=== PATIENT | female | born 1950 | race Caucasian/White ===

== ENCOUNTER 2019-12-28 01:53 | Outpatient (CLI) | payer OTHER, SELFPAY ==
--- NOTE | 2019-12-28 | DI.MAMMO_ITS ---
EXAM: MG MAMMO SCREENING CLINICAL HISTORY: SCREENING, TECHNIQUE: Bilateral full field digital CC and MLO mammographic images were obtained with 3D tomosyn thesis and utilizing computer aided detection (CAD). COMPARISON: Available for comparison. FINDINGS: Masses/Architectural Distortion: None seen. Microcalcifications: No suspicious pleomorphic-type are seen. Skin Thickening/Nipple Retraction: None. IMPRESSION: 1. No significant interval change with no specific features of malignancy noted. 2. Unless there is more urgent need, screening mammography is recommended, as per [employer] guidelines. BI-RADS Category 1 - Negative Breast Density - Category B - Scattered areas of fibroglandular density A negative radiographic report should not delay biopsy if a dominant or clinically suspicious mass is present. Up to ten percent of cancers are not identified on mammography. A negative report may reinforce clinical impression. Adenosis and dense breasts may obscure an underlying neoplasm. False positive reports average 6 to 10%. Patient will receive a letter notifying them of these results.
== END 2019-12-28 02:13 ==
PROVIDERS: PCP Internal Medicine; Visit Provider Internal Medicine
DX: Z12.31 Encounter for screening mammogram for malignant neoplasm of breast (principal); R92.2 Inconclusive mammogram
CPT/HCPCS: 77063; 77067

== ENCOUNTER 2020-11-08 09:35 | Outpatient (REF) | payer OTHER, SELFPAY ==
--- NOTE | 2020-11-08 08:45 | PAPFT_PTH ---
PATIENT: Mera Burt LOC: [facility] U#:[id number] AGE/SX: 69/F ROOM: RE11/08/[address]: Melissa Anderson : 1950 BED: DIS: 11/08/2020 SPEC #: [id number] RECD: 11/08/20 18:42 STATUS: JAYLAN GALLEGOS #: [id number] ANAMIKA: 11/08/20 08:[address]: Melissa Anderson DEPT: [facility] Cytology RECD BY: Jaz Woodall Tissues: 1 - CX/ENDOCX FOR PAP SMEARS Procedures: PAP THIN PREP/UVM Screening Comments: [id number]
[2020-11-08 20:01] LABS: Anion Gap 7.5 mmol/L (3-11); BUN 16 mg/dL (7-18); CO2 28.5 mmol/L (21.0-32.0); CREATININE 0.9 mg/dL (0.55-1.02); Calculated LDL 71 mg/dL (<100); Chloride 108 mmol/L (98-107); Cholesterol 139 mg/dL (<200); Glucose 105 mg/dL (74-106); HDL Cholesterol 51 mg/dL (40-60); Potassium 4.6 mmol/L (3.5-5.1); Sodium 144 mmol/L (136-145); Triglyceride 88 mg/dL (<150)
== END 2020-11-08 09:36 | disposition home or self-care (01) ==
LOC: NCHCN 09:35
PROVIDERS: PCP Nurse Practitioner Family; Visit Provider Nurse Practitioner Family
DX: E78.5 Hyperlipidemia, unspecified (principal); I10 Essential (primary) hypertension; Z12.4 Encounter for screening for malignant neoplasm of cervix
CPT/HCPCS: 80048; 80061; 88142

== ENCOUNTER 2021-01-02 02:13 | Outpatient (CLI) | payer OTHER, SELFPAY ==
--- NOTE | 2021-01-02 | DI.MAMMO_ITS ---
Exam(s) MAMMO SCREENING EXAM: MAMMO SCREENING CLINICAL HISTORY: SCREENING,Z12.39. TECHNIQUE: Bilateral full field digital CC and MLO mammographic images were obtained with 3D tomosyn thesis and utilizing computer aided detection (CAD). COMPARISON: Prior mammograms dating back to 2011, the most recent being December 2019. FINDINGS: There are no new significant radiograph findings in the left breast. Posteriorly in the right breast on the CC view there is an asymmetric density located 6 cm in from th e nipple up again suggest wall which will require spot-compression view. No malignant-appearing micr ocalcification groups in this region or elsewhere in either breast. There is no significant architectural distortion nor skin thickening-retraction. IMPRESSION: 1. No radiographic evidence of malignancy in left breast. 2. Asymmetric density-possible nodule located posteriorly in the right breast. Additional spot compr ession views plus possible ultrasound of the right breast recommended BI-RADS Category 0 - Assessment Incomplete: Need additional imaging evaluation Breast Density - Category C - Heterogeneously dense Breast density Category C or D implies that the patient has dense breast tissue. Dense breast tissue can make it harder to find cancer on a mammogram. Dense breast tissue is also associated with an incr eased risk of breast cancer. This information about the result of the mammogram report was provided to the patient to raise their awareness. Use this report when you speak with the patient about their risks for breast cancer, which includes their family history. At that time, you may recommend additional screening tests (Ultrasoun d or MRI) as these tests may add significant information. A negative radiographic report should not delay biopsy if a dominant or clinically suspicious mass is present. Up to ten percent of cancers are not identified on mammography. A negative report may reinforce clinical impression. Adenosis and dense breasts may obscure an underlying neoplasm. False positive reports average 6 to 10%. Patient will receive a letter notifying them of these results.
== END 2021-01-02 02:33 ==
PROVIDERS: PCP Nurse Practitioner Family; Visit Provider Nurse Practitioner Family
DX: Z12.31 Encounter for screening mammogram for malignant neoplasm of breast (principal); R92.8 Other abnormal and inconclusive findings on diagnostic imaging of breast
CPT/HCPCS: 77063; 77067

== ENCOUNTER 2021-01-19 01:50 | Outpatient (CLI) | payer OTHER, SELFPAY ==
--- NOTE | 2021-01-19 | DI.MAMMO_ITS ---
Exam(s) MAMMO SCREEN CALL BACK UNI EXAM: MAMMO SCREEN CALL BACK UNI CLINICAL HISTORY: F/U MAMMO,RT BREAST ASYMMETRIC DENSITY,? NODULE TECHNIQUE: Spot compression views and tomographic imaging were performed. COMPARISON: 2010 through 02 January 2021. FINDINGS: No suspicious masses or suspicious microcalcifications are seen. No persistent abnormality is seen on the additional views performed. The findings are consistent wit h overlying fibroglandular tissue. There has been no significant change from prior exams. IMPRESSION: BI-RADS Category 1, Negative Yearly screening mammography is recommended. Breast Density - Category B, scattered fibroglandular densities.
== END 2021-01-19 02:10 ==
PROVIDERS: PCP Nurse Practitioner Family; Visit Provider Nurse Practitioner Family
DX: R92.8 Other abnormal and inconclusive findings on diagnostic imaging of breast (principal); Z12.31 Encounter for screening mammogram for malignant neoplasm of breast
CPT/HCPCS: 77063; 77067

== ENCOUNTER → 2022-03-28 02:22 | Outpatient (CLI) | payer MEDICARE, SELFPAY ==
--- NOTE | 2022-03-28 07:40 | DI.MAMMO_ITS ---
Exam(s) MAMMO SCREENING EXAM: MAMMO SCREENING CLINICAL HISTORY: SCREENING, Z12.39 TECHNIQUE: Bilateral full field digital CC and MLO mammographic images were obtained with 3D tomosyn thesis and utilizing computer aided detection (CAD). COMPARISON: Available for comparison. FINDINGS: Masses/Architectural Distortion: No suspicious masses or areas of architectural distortion is seen. Microcalcifications: No suspicious pleomorphic-type are seen. Skin Thickening/Nipple Retraction: None. IMPRESSION: 1. No significant interval change with no specific features of malignancy noted. 2. Unless there is more urgent need, screening mammography is recommended, as per [employer] guidelines. BI-RADS Category 1 - Negative Breast Density - Category B - Scattered areas of fibroglandular density Breast density category C or D implies that the patient has dense breast tissue. Dense breast tissue is very common and is not abnormal but dense breast tissue can make it harder to find cancer on a ma mmogram. Also, dense breast tissue may increase their breast cancer risk. This information about the result of the mammogram report was provided to the patient to raise their awareness. Use this report when you speak with the patient about their risks for breast cancer, which includes their family hist ory. At that time, you may recommend for more screening tests (Ultrasound or MRI) as they might be us eful based on their risk. A negative radiographic report should not delay biopsy if a dominant or clinically suspicious mass is present. Up to ten percent of cancers are not identified on mammography. A negative report may reinforce clinical impression. Adenosis and dense breasts may obscure an underlying neoplasm. False positive reports average 6 to 10%. Patient will receive a letter notifying them of these results.
== END ==
PROVIDERS: PCP Nurse Practitioner Family; Visit Provider Nurse Practitioner Family
DX: Z12.31 Encounter for screening mammogram for malignant neoplasm of breast (principal); R92.8 Other abnormal and inconclusive findings on diagnostic imaging of breast
CPT/HCPCS: 77063; 77067

== ENCOUNTER 2023-01-24 11:01 | Outpatient (REF) | payer MEDICARE, SELFPAY ==
[2023-01-24 19:20] LABS: ALT 23 U/L (14-59); AST 24 U/L (15-37); Albumin 3.9 g/dL (3.4-5.0); Alkaline Phosphatase 73 U/L (46-116); Anion Gap 7.4 mmol/L (3-11); BUN 14 mg/dL (7-18); Bilirubin, Total 0.5 mg/dL (0.2-1.0); CO2 29.6 mmol/L (21.0-32.0); CREATININE 0.9 mg/dL (0.55-1.02); Calculated LDL 87 mg/dL (<100); Chloride 105 mmol/L (98-107); Cholesterol 155 mg/dL (<200); Estimated GFR 68.35 (mL/min/1.73m2); Glucose 95 mg/dL (74-106); HDL Cholesterol 51 mg/dL (40-60); Potassium 3.9 mmol/L (3.5-5.1); Sodium 142 mmol/L (136-145); Total Protein 7.3 g/dL (6.4-8.2); Triglyceride 86 mg/dL (<150)
== END 2023-01-24 11:02 | disposition home or self-care (01) ==
LOC: NCHCN 11:01
PROVIDERS: PCP Nurse Practitioner Family; Visit Provider Nurse Practitioner Family
DX: I10 Essential (primary) hypertension (principal); E78.5 Hyperlipidemia, unspecified
CPT/HCPCS: 80053; 80061

== ENCOUNTER → 2023-03-04 07:53 | Outpatient (BNVA) | payer MEDICARE, SELFPAY | PROVIDERS: PCP Nurse Practitioner Family; Referring Provider Nurse Practitioner Family; Visit Provider Surgery | DX: Z12.11 Encounter for screening for malignant neoplasm of colon (principal); Z86.010 Personal history of colon polyps ==

== ENCOUNTER 2023-03-18 06:51 | Day surgery (SDC) | payer MEDICARE, SELFPAY ==
--- NOTE | 2023-03-17 18:13 | W.PM.DSUDISC ---
Date of service: 03/18/23 Time of Service: 08:44 Discharge Plan Disposition Patient Disposition: Home Condition: Good Discharge Details Reason For Visit: Screening colonoscopy Attending Provider: Babatunde De Primary Care Provider: Almita Treviño Home Meds and New Rx's Prescriptions: Continued metoprolol succinate [Toprol XL] 50 mg tablet extended release 24 hr 25 mg PO DAILY Patient Comments: pt. reports she takes 12.5 mg valsartan 80 MG tablet 80 mg PO DAILY aspirin [Aspir-81] 81 MG tablet,delayed release (DR/EC) 81 mg PO DAILY simvastatin 20 MG tablet 20 mg PO DAILY avuyqbegii-zxpkrak-ulyjtyct [Fiorinal] 1 EACH capsule 2 tab-cap PO PRN ascorbic acid (vitamin C) [Vitamin C] 500 MG capsule, extended release 500 mg PO DAILY cholecalciferol (vitamin D3) [Vitamin D3] 1,000 UNIT capsule 1,000 unit PO DAILY Discontinued bisacodyl [Dulcolax (bisacodyl)] 5 mg tablet,delayed release (DR/EC) 5 mg PO ONCE Qty: 4 0RF Rx Instructions: Take per colonoscopy instructions provided by ordering providers office polyethylene glycol 3350 17 gram/dose powder 17 g PO ONCE Qty: 238 0RF Rx Instructions: Take per colonoscopy instructions provided by ordering providers office Discharge Instructions Instructions: Diverticulosis (GEN), Diverticulosis Diet (GEN) Additional Instructions: Mera, we were able to complete your colonoscopy today. The quality of your prep was outstanding. I did not see any signs of tumors or polyps anywhere along the length of your colon. Incidentally, you do have a small amount of diverticulosis. Diverticula are small weak spots in the colon wall that typically accumulate with age. They can become infected and inflamed, and that is typically experienced as sharp pain usually on the left side of the abdomen, or lower across the midportion. This is typically associated with fevers, and during those times, patient should be treated with antibiotics. Have attached a little bit of information here regarding general management of diverticular disease. Based on the previous colonoscopy that you had, and your history of tubular adenoma, I do still recommend a 5-year follow-up for your next colonoscopy. 1. If tolerated, consume a soft, low fiber diet for 1-2 days. 2[address] Do not drive, drink alcohol, operate machinery, make critical decisions, or do activities that require coordination or balance for 24 hours. 3. Because air was put into your colon during the procedure, expelling air from your rectum (passing gas or farting) is normal. 4. You may not have a bowel movement for 1-3 days because of the colonoscopy prep. This is normal. 5. Go directly to the emergency room if you notice any of the following: Develop chills (warm to touch), or if you have a thermometer and your temperature is above 101 Difficulty breathing or difficultly swallowing Persistent vomiting Severe abdominal pain, other than gas cramps Severe chest pain Black, tarry stools Any bleeding ? exceeding one tablespoon 6. Call your physician if the site where your intravenous was started becomes red, swollen, painful, and warm to touch. 7. Your physician has reviewed your pre-procedure medications. Please continue to take those medications as previously ordered. You will be given specific information/education regarding any changes to your medications before leaving. Activity:: Activity as Tolerated Diet:: As Tolerated Discharge Orders Discharge Orders: Discharge Order (Routine); Ordered 03/17/23 Ordered By: Babatunde De DS: Diagnosis Discharge Diagnosis (1) Screen for colon cancer: Status: Acute Asessment and Plan: Negative screening colonoscopy. Based on previous tubular adenoma, I recommend a 5-year follow-up
--- NOTE | 2023-03-17 18:15 | W.COLOREPORT ---
Date of service: 03/18/23 Time of Service: 08:48 Colonoscopy Report Date of procedure: 03/18/23 Pre-op diagnosis general: screening colonoscopy Post-op diagnosis procedure note: other (Diverticulosis) Procedure: Colonoscopy Surgeon: Babatunde De Anesthesia Type: General:No Airway Estimated blood loss (mL): 0 Pathology: none sent Complications: None Disposition: same day Indications: Mera is a 72 year old woman with a history of tubular adenoma who needs another screening colonoscopy Prep: Miralax/Dulcolax Procedure Start Time: 08:12 Procedure End Time: 08:34 Retraction Time: 15 Findings: Occasional sigmoid diverticulosis Procedure Description: After the induction of monitored anesthetic care, and with the patient in left lateral decubitus position, I began by performing an external anorectal exam.? Perineum and skin were normal, as was the anal verge.? There was evidence of external hemorrhoids.? Next, I performed a digital rectal exam.? I did not appreciate any abnormal findings.? Next, I advanced a colonoscope into the rectal vault.? I performed retroflexion.? This appeared normal.? Using insufflation, I then advanced the colonoscope beyond the rectal folds and into the sigmoid colon before advancing towards the cecum.? The quality of the prep was excellent.? There were some occasional sigmoid diverticuli. The scope was noted to be in the cecum by identification of the ileocecal valve and appendiceal orifice.? I then began withdrawing the colonoscope using repeated irrigation as necessary for full evaluation of the colonic mucosa. ?Once the scope was withdrawn to the level of the rectum, great care was taken to examine portions of the rectal folds.? I did not see any signs of tumors, polyps, or any other concerning abnormality along the length of the colon. Finally, the scope was withdrawn and the patient was brought to the same-day surgery recovery unit as the anesthetic wore off. ?The findings and instructions were shared with the patient prior to discharge. Reynolds Bowel Prep Reynolds Bowel Prep Right Colon: 3 Left Colon: 3 Transverse Colon: 3 Total Score: 9
[2023-03-18 07:21] VITALS: BP 137/70; PULSE 65; RESP 16; TEMP 36.6; O2SAT 98
[2023-03-18] MEDS: Lactated Ringers 1,000 ML 80 ML IV (07:40)
--- NOTE | 2023-03-18 08:04 | W.ANESPRE ---
General Info Date of Service Date Performed: 03/18/23 Height: 5 ft 4 in Weight: 67.132 kg Body Mass Index (BMI): 25.4 Surgical Procedure: Operation Date: 03/18/23 08:20 Proposed Procedure Side Surgeon brian De MD Meds Allergies and Home Medications Allergies Allergy/AdvReac Type Severity Reaction Status Date / Time Penicillins Allergy Intermediate Hives Unverified 03/18/23 07:16 lisinopril AdvReac Mild Verified 03/18/23 07:16 Home Medication Medication Instructions Recorded ascorbic acid (vitamin C) 500 mg 500 mg PO DAILY 08/22/15 capsule,extended release (Vitamin C) aspirin 81 mg tablet,delayed 81 mg PO DAILY 08/22/15 release (Aspir-) jtbqxdtzlt-pgfczal-wejpdycm 50 2 tab-cap PO PRN 08/22/15 mg-325 mg-40 mg capsule (Fiorinal) cholecalciferol (vitamin D3) 25 1,000 unit PO DAILY 08/22/15 mcg (1,000 unit) capsule (Vitamin D3) simvastatin 20 mg tablet 20 mg PO DAILY 08/22/15 valsartan 80 mg tablet 80 mg PO DAILY 08/22/15 metoprolol succinate 50 mg 25 mg PO DAILY 03/04/23 tablet,extended release 24 hr (Toprol XL) Current Visit Medications: Current Medications Generic Name Dose Route Start Last Admin Trade Name Freq PRN Reason Stop Dose Admin Hyoscyamine Sulfate 0.125 mg 03/17/23 18:16 Hyoscyamine 0.125 Mg Sl/Oral/Chew SL 04/16/23 18:15 DIRECTED PRN Ringer's Solution 1,000 mls @ 80 mls/hr 03/18/23 07:45 03/18/23 07:40 IV 04/17/23 07:41 80 mls/hr INFUSION JOHANN Administration IV Miscellaneous Supplies 1 each 03/18/23 07:45 Iv Access IV 04/17/23 07:44 DIRECTED JOHANN Ondansetron HCl 4 mg 03/17/23 18:16 Ondansetron 4 Mg/2 Ml Vial IVP 04/16/23 18:15 Q4H PRN PRN Nausea / Vomiting Sodium Chloride 0 ml 03/18/23 07:40 Normal Saline Flush 10 Ml Syr IVP 04/17/23 07:40 PRN PRN PFSH Active Problems Active Problems: Problem Status Onset Code Screen for colon cancer Z12.11 Medical History Medical History Hypertension Tubular adenoma of colon (02/28/12) Congenital insufficiency of aortic valve Menopausal and female climacteric states Migraine Family history of ischemic heart disease and other diseases of the circulatory system Surgical History Surgical History H/O left wrist surgery arthroscopy History of hysteroscopy H/O cardiac catheterization [facility] nstemi 07/15/2011 bicuspid aortic valve 08/2011 Colonoscopy - MAC (11/11/17) Colonoscopy - MAC (02/28/12) Tobacco Smoking/Tobacco Use Status: Never Alcohol Alcohol Intake: current Alcohol intake frequency: holidays/special occasions only Alcohol type: beer and wine Substance Use Substance use: Never Substance use type: does not use Details: alcohol: months ago Vital Signs and Lab Results Vital Signs Most Recent Vital Signs in EMR: Most Recent Vital Signs Temp Pulse Resp BP Pulse Ox 36.6 C 65 16 137/70 98 03/18/23 07:21 03/18/23 07:21 03/18/23 07:21 03/18/23 07:21 03/18/23 07:21 Lab Results Blood Type / Crossmatch: No Data to Display Complete Blood Count: No Data to Display Complete Metabolic Panel: No Data to Display Liver Function Panel: No Data to Display Coagulation Panel: No Data to Display Cardiac Panel: No Data to Display Arterial Blood Gas: No Data to Display Venous Blood Gas: No Data to Display Pancreas Panel: No Data to Display Thyroid Panel: No Data to Display Infectious Disease: No Data to Display Blood Cultures: No Data to Display Toxicology Panel: No Data to Display Anesthesia Assessment and Plan Anesthesia History Personal History: No History of Anesthesia Complications Family History: No Family History of Anesthesia Complications Exercise Tolerance Exercise Tolerance: Metabolic Equivalents>4 Pertinent Negatives Pertinent Negatives: No Symptoms of GERD, No Major Cardiovascular Symptoms or Complaints and No Major Pulmonary Symptoms or Complaints Cardiac & Pulmonary Exam Cardiac Exam: Heart Murmur Present Pulmonary Exam: Clear Bilateral Breath Sounds Implantable Cardiac Device Does patient have a Pacemaker or an ICD?: No Airway Exam Known Difficult Airway: No Mallampati Class: 2 Mouth Opening: Normal (> 3cm) Thyromental Distance: Greater than 3 cm Neck Range of Motion: Full ROM Neck Circumference: Normal Teeth Condition: Normal Dentition ASA Classification ASA Score: ASA 3 Emergency Case?: No NPO Status NPO Status: NPO Clears >2 hours, Solids >8 hours Anesthesia Plan Resuscitation Status: Full Code Anesthesia Technique: General Anesthesia Airway Planned: Natural Airway Monitors Used: Standard Monitors
[2023-03-18 08:07] VITALS: BMI 25.4
[2023-03-18 08:43] VITALS: BP 107/67; PULSE 59; RESP 16; TEMP 36.4; O2SAT 98
--- NOTE | 2023-03-18 09:02 | W.ANESPOSTOP ---
Postoperative Evaluation Date, Time and Location Date Performed: 03/18/23 Time Performed: 09:03 Patient Location: Day Surgery Unit Vital Signs Most Recent Imported Vital Signs: Most Recent Vital Signs Temp Pulse Resp BP Pulse Ox 36.4 C L 59 L 16 107/67 98 03/18/23 08:43 03/18/23 08:43 03/18/23 08:43 03/18/23 08:43 03/18/23 08:43 Pain Score Most Recent Pain Score: Most Recent Pain Score Pain Level 0 03/18/23 08:43 Assessment Mental Status: Awake (Alert & Oriented to Patient Baseline) Airway and Respiratory Function: Patent airway with normal (patient baseline) respiratory exam Cardiovascular Function: Hemodynamically Stable Hydration Status: Adequately Hydrated Nausea & Vomiting: No Nausea or Vomiting Pain: Pt. Denies Any Pain Peripheral Nerve Block: Patient did not receive a nerve block
== END 2023-03-18 09:25 | disposition home or self-care (01) ==
LOC: SUR 06:51
PROVIDERS: PCP Nurse Practitioner Family; Visit Provider Surgery
PROC: 0DJD8ZZ Inspection of Lower Intestinal Tract, Via Natural or Artificial Opening Endoscopic (ICD-10-PCS; CPT 45378; principal; 2023-03-18 08:15)
DX: Z12.11 Encounter for screening for malignant neoplasm of colon (principal); K57.30 Diverticulosis of large intestine without perforation or abscess without bleeding
CPT/HCPCS: G0121; J2001

== ENCOUNTER → 2023-04-01 01:25 | Outpatient (CLI) | payer MEDICARE, SELFPAY ==
--- NOTE | 2023-04-01 | DI.MAMMO_ITS ---
Exam(s) MAMMO SCREENING EXAM: MAMMO SCREENING CLINICAL HISTORY: SCREENING, Z12.39. TECHNIQUE: Bilateral full field digital CC and MLO mammographic images were obtained with 3D tomosyn thesis and utilizing computer aided detection (CAD). COMPARISON: Prior mammograms were reviewed. FINDINGS: There has been no significant change in the appearance and distribution of the fibroglandular tissue. There are no CAD designations. There are no new spiculated masses nor malignant appearing microcalcification groups. Benign macro calcifications are again noted in both breasts. There is no significant architectural distortion nor skin thickening-retraction. IMPRESSION: No radiographic evidence of malignancy. BI-RADS Category 1 - Negative Breast Density - Category B - Scattered areas of fibroglandular density Breast density Category C or D implies that the patient has dense breast tissue. Dense breast tissue can make it harder to find cancer on a mammogram. Dense breast tissue is also associated with an incr eased risk of breast cancer. This information about the result of the mammogram report was provided to the patient to raise their awareness. Use this report when you speak with the patient about their risks for breast cancer, which includes their family history. At that time, you may recommend additional screening tests (Ultrasoun d or MRI) as these tests may add significant information. A negative radiographic report should not delay biopsy if a dominant or clinically suspicious mass is present. Up to ten percent of cancers are not identified on mammography. A negative report may reinforce clinical impression. Adenosis and dense breasts may obscure an underlying neoplasm. False positive reports average 6 to 10%. Patient will receive a letter notifying them of these results.
== END ==
PROVIDERS: PCP Nurse Practitioner Family; Visit Provider Nurse Practitioner Family
DX: Z12.31 Encounter for screening mammogram for malignant neoplasm of breast (principal)
CPT/HCPCS: 77063; 77067

== ENCOUNTER 2023-12-27 11:35 | Emergency (ER) | payer MEDICARE, SELFPAY ==
[2023-12-27 11:36] VITALS: BP 152/65; PULSE 58; RESP 16; TEMP 36.1; O2SAT 99
[2023-12-27 11:41] VITALS: BP 152/65; PULSE 58; RESP 16; TEMP 36.1; O2SAT 99
--- NOTE | 2023-12-27 11:59 | ED.GENADUL_ITS ---
Discharge Plan Disposition Patient Disposition: Home Condition: Stable Discharge Details Clinical Impression: Acute pain in right eye, Corneal abrasion Primary Care Provider: Unknown,Unknown ED Provider: Jose Foster Home Meds and New Rx's Prescriptions: Continued metoprolol succinate [Toprol XL] 50 mg tablet extended release 24 hr 12.5 mg PO DAILY Patient Comments: pt. reports she takes 12.5 mg valsartan 80 MG tablet 80 mg PO DAILY aspirin [Aspir-81] 81 MG tablet,delayed release (DR/EC) 81 mg PO DAILY simvastatin 20 MG tablet 20 mg PO DAILY [id number] [Fiorinal] 1 EACH capsule 2 tab-cap PO PRN ascorbic acid (vitamin C) [Vitamin C] 500 MG capsule, extended release 500 mg PO DAILY cholecalciferol (vitamin D3) [Vitamin D3] 1,000 UNIT capsule 1,000 unit PO DAILY Discharge Instructions Additional Instructions: You have a small corneal abrasion that will likely heal rapidly Use erythromycin 4 times a day while awake for 5 days If not improved by Saturday follow-up with your clinical safety specialist If you feel more ill or have severe worsening pain or high fevers return to the emergency department for reevaluation HPI General Mode of arrival: ambulatory . Date/Time Provider Initiated Documentation: 12/27/23 11:44 . Limitations to Documentation: no limitations . Information obtained by: patient . History of Present Illness 73 year old F presents to the emergency department with the chief complaint of right eye pain/tearing, described as moderate, Quality is described as aching, and is localized to the eyes and right. Patient reports no radiation. Patient started experiencing this hour(s) (5) and it has been constant. No relieving factors improve symptom(s), No exacerbating factors reported . Patient notes no other symptoms.; denies fever/chills. Patient did receive the following treatments prior to arrival, none Related Data Home Medications ?Medication ?Instructions ?Recorded ?Confirmed ascorbic acid (vitamin C) 500 mg 500 mg PO DAILY 08/22/15 12/27/23 capsule,extended release (Vitamin C) aspirin 81 mg tablet,delayed 81 mg PO DAILY 08/22/15 12/27/23 release (Aspir-) fmuookicye-mnmiqdm-poxsiriv 50 2 tab-cap PO PRN 08/22/15 12/27/23 mg-325 mg-40 mg capsule (Fiorinal) cholecalciferol (vitamin D3) 25 1,000 unit PO DAILY 08/22/15 12/27/23 mcg (1,000 unit) capsule (Vitamin D3) simvastatin 20 mg tablet 20 mg PO DAILY 08/22/15 12/27/23 valsartan 80 mg tablet 80 mg PO DAILY 08/22/15 12/27/23 metoprolol succinate 50 mg 12.5 mg PO DAILY 03/04/23 12/27/23 tablet,extended release 24 hr (Toprol XL) Allergies Allergy/AdvReac Type Severity Reaction Status Date / Time Penicillins Allergy Intermediate Hives Unverified 12/27/23 11:40 lisinopril AdvReac Mild Other (See Verified 12/27/23 11:40 Comment) General Stated Complaint: EyeProblem JAMES: 4 Review of Systems All systems reviewed & are unremarkable except as noted in HPI and below Constitutional Constitutional: Denies chills, Denies fever(s) and Denies weakness Eyes Eyes: Denies loss of vision Cardiovascular Cardiovascular: Denies chest pain and Denies dyspnea Respiratory Respiratory: Denies cough and Denies dyspnea Gastrointestinal Gastrointestinal: Denies vomiting Neurologic Neurologic: Denies loss of vision and Denies weakness Exam Const General: no acute distress Orientation: alert HENMT Head: normal to inspection Ears: external ears normal General nose exam: external nose normal Mouth: moist mucous membranes Eyes Alignment and Position: alignment normal Periorbital: periorbital findings normal Eyelids: eyelids normal Neck Neck: normal visual inspection Resp Effort & Inspection: normal respiratory effort and able to speak in complete sentences Cardio Rate: regular rate Skin General skin exam: no rashes or lesions noted Neuro General: patient alert and patient oriented x3 Extrem General: normal to inspection Psych Mental Status: mental status grossly normal Course Vital Signs Vital signs: Vital Signs Temperature 36.1 C L 12/27/23 11:36 Pulse 58 L 12/27/23 11:36 Respiratory Rate 16 12/27/23 11:36 Blood Pressure 152/65 H 12/27/23 11:36 Pulse Oximetry 99 12/27/23 11:36 Temperature 36.1 C L 12/27/23 11:41 Temperature Source Temporal Artery Scan 12/27/23 11:41 Pulse 58 L 12/27/23 11:41 Respiratory Rate 16 12/27/23 11:41 Respiratory Effort Normal, Non-Labored 12/27/23 11:42 Blood Pressure 152/65 H 12/27/23 11:41 Blood Pressure Position Sitting 12/27/23 11:41 Pulse Oximetry 99 12/27/23 11:41 Medical Decision Making 73-year-old female comes in with right eye pain since waking up this morning. She says she feels like there is something scratching in the upper part of her right eye. Denies any known trauma to the eye. No changes in vision, has 20/15 pain on testing with her glasses for visual acuity. She has no periorbital swelling, she has intact extraocular eye movements. There is no deep eye pain per patient. Her right eye conjunctivitis diffusely erythematous. Plan to place tetracaine and perform fluorescein exam. After placing tetracaine patient had resolution of her pain. She has no foreign bodies visible in the eye or under the eyelids. On fluorescein staining does have a small 2 mm at the 10 o'clock position on the conjunctive. Otherwise no concerning findings on exam. Will place her on erythromycin ointment and have her follow-up with her clinical safety specialist if not better on Saturday. Return precautions given Differential Diagnosis Differential Diagnosis: Corneal abrasion, conjunctivitis Quality:SDOH Health Related Social Needs: 2 No Data to Display PFSH All Active Problems (Updated 12/27/23 @ 12:22 by Jose Foster MD) Corneal abrasion (Acute) Acute pain in right eye (Acute) Screen for colon cancer (Acute) Medical History (Updated 12/27/23 @ 12:22 by Jose Foster MD) Hypertension Tubular adenoma of colon (02/28/12) Congenital insufficiency of aortic valve Menopausal and female climacteric states Migraine Family history of ischemic heart disease and other diseases of the circulatory system Surgical History (Updated 03/18/23 @ 15:30 by Ana M Waterman) History of colonoscopy (~02/2023) H/O left wrist surgery arthroscopy History of hysteroscopy H/O cardiac catheterization [facility] 07/15/2011 bicuspid aortic valve 08/2011 Colonoscopy - MAC (11/11/17) Colonoscopy - MAC (02/28/12) Social History (Updated 03/04/23 @ 08:16 by Mercy Davis MD) Smoking/Tobacco Use Status: Never Smoking risk assessment performed?: Yes Alcohol Intake: current Alcohol Intake frequency: holidays/special occasions only Alcohol type: beer and wine Drug use: Never Substance use type: does not use Details: alcohol: months ago Housing: house current occupation: retired OR nurse Current gender identity: female Do you feel safe at home: Yes Do you feel safe in your relationship?: Yes PAWSS Have you Been Recently Intoxicated or Drunk Within the Last 30 days?: No Have you Ever Experienced Previous Episodes of Alcohol Withdrawal?: No Have you ever Experienced Withdrawal Seizures?: No Have you ever Experienced Delirium Tremens(DT)s?: No Have you ever undergone Alcohol Rehabilitation Treatment (i.e, inpt ot outpatient treatment programs)?: No Have you ever Experienced Blackouts?: No Have you ever Combined Alcohol with other Downers within the last 90 days?: No Have you ever Combined Alcohol with any other Substance of Abuse during the last 90 days?: No Positive Blood Alcohol level on Presentation? [PCS.BAL]: No Evidence of Increased Autonomic Activity (i.e. HR>120, tremor, sweating, agitation, nausea)?: No Result: 0
[2023-12-27] MEDS: Tetracaine 0.5% 4 ML BTL (12:38)
[2023-12-27] MEDS: Fluorescein STRIPS 100/BOX 1 MG (12:38)
[2023-12-27] MEDS: Erythromycin Ophth Oint 3.5 GM TUBE OP (12:38)
[2023-12-27] MEDS: Balanced Salt Solution 15 ML BTL (12:39)
== END 2023-12-27 12:39 | disposition home or self-care (01) ==
LOC: ER 12:28
PROVIDERS: Emergency Provider Emergency Medicine
DX: S05.01XA Injury of conjunctiva and corneal abrasion without foreign body, right eye, initial encounter (principal); I10 Essential (primary) hypertension; I25.2 Old myocardial infarction; Z79.82 Long term (current) use of aspirin; X58.XXXA Exposure to other specified factors, initial encounter
CPT/HCPCS: 99283

== ENCOUNTER 2024-02-07 15:01 | Outpatient (REF) | payer MEDICARE, SELFPAY ==
[2024-02-07 16:05] LABS: Abs Immature Grans 0.02 10^3/uL (0.0-0.06); Absolute Basophil Count 0.07 10^3/uL (0.0-0.2); Absolute Eosinophil Count 0.07 10^3/uL (0.0-0.7); Absolute Lymphocyte Count 1.84 10^3/uL (1.2-3.4); Absolute Monocyte Count 0.48 10^3/uL (0.1-0.8); Absolute Neutrophil Count 4.18 10^3/uL (1.2-6.7); Basophils % 1.1 %; Eosinophils % 1.1 %; HCT 36.8 % (36.0-46.0); Immature Grans % 0.3 %; Lymphocytes % 27.6 %; MCH 30.6 pg (27.0-33.0); MCHC 32.6 % (32.0-36.0); MCV 94 fL (80-95); Monocytes % 7.2 %; Neutrophils % 62.7 %; Platelet Count 193 10^3/uL (130-400); RBC 3.92 10^6/uL (3.93-5.22); RDW-SD 47.7 fL; WBC 6.66 10^3/uL (4.4-10.8)
[2024-02-07 16:12] LABS: ALT 17 U/L (14-59); AST 23 U/L (15-37); Albumin 3.8 g/dL (3.4-5.0); Alkaline Phosphatase 74 U/L (46-116); Anion Gap 7.2 mmol/L (3-11); BUN 13 mg/dL (7-18); Bilirubin, Total 0.41 mg/dL (0.2-1.0); CO2 28.8 mmol/L (21.0-32.0); Calculated LDL 81 mg/dL (<100); Chloride 106 mmol/L (98-107); Cholesterol 155 mg/dL (<200); Estimated GFR 59.86 (mL/min/1.73m2); Glucose 98 mg/dL (74-106); HDL Cholesterol 61 mg/dL (40-60); Potassium 4.2 mmol/L (3.5-5.1); Sodium 142 mmol/L (136-145); Triglyceride 68 mg/dL (<150)
== END 2024-02-07 15:02 | disposition home or self-care (01) ==
LOC: NCHCN 15:01
PROVIDERS: PCP Nurse Practitioner Family; Visit Provider Nurse Practitioner Family
DX: I10 Essential (primary) hypertension (principal)
CPT/HCPCS: 80053; 80061; 85025

== ENCOUNTER 2024-04-06 01:33 | Outpatient (CLI) | payer MEDICARE, SELFPAY ==
--- NOTE | 2024-04-06 07:45 | DI.MAMMO_ITS ---
Exam(s) MAMMO SCREENING EXAM: MAMMO SCREENING CLINICAL HISTORY: SCREENING,Z12.31. TECHNIQUE: Bilateral full field digital CC and MLO mammographic images were obtained with 3D tomosyn thesis and utilizing computer aided detection (CAD). COMPARISON: Prior mammograms were reviewed. FINDINGS: There has been no significant change in the appearance and distribution of the fibroglandular tissue. Small benign-appearing nodule in the upper-outer quadrant of the right breast is unchanged from prior studies and most probably benign intramammary lymph node. There are no new spiculated masses nor malignant appearing microcalcification groups. There is no significant architectural distortion nor skin thickening-retraction. IMPRESSION: No radiographic evidence of malignancy. BI-RADS Category 1 - Negative Breast Density - Category B - Scattered areas of fibroglandular density Breast density Category C or D implies that the patient has dense breast tissue. Dense breast tissue can make it harder to find cancer on a mammogram. Dense breast tissue is also associated with an incr eased risk of breast cancer. This information about the result of the mammogram report was provided to the patient to raise their awareness. Use this report when you speak with the patient about their risks for breast cancer, which includes their family history. At that time, you may recommend additional screening tests (Ultrasoun d or MRI) as these tests may add significant information. A negative radiographic report should not delay biopsy if a dominant or clinically suspicious mass is present. Up to ten percent of cancers are not identified on mammography. A negative report may reinforce clinical impression. Adenosis and dense breasts may obscure an underlying neoplasm. False positive reports average 6 to 10%. Patient will receive a letter notifying them of these results.
== END 2024-04-06 01:53 ==
LOC: DI 01:33
PROVIDERS: PCP Nurse Practitioner Family; Visit Provider Nurse Practitioner Family
DX: Z12.31 Encounter for screening mammogram for malignant neoplasm of breast (principal); R92.323 Mammographic fibroglandular density, bilateral breasts
CPT/HCPCS: 77063; 77067

== ENCOUNTER 2025-02-08 09:46 | Outpatient (CLI) | payer MEDICARE, SELFPAY ==
[2025-02-08 13:59] LABS: Abs Immature Grans 0.02 10^3/uL (0.0-0.06); HCT 36.4 % (36.0-46.0); HGB 11.7 g/dL (11.2-15.7); Immature Grans % 0.2 %; MCH 30.4 pg (27.0-33.0); MCHC 32.1 % (32.0-36.0); MCV 95 fL (80-95); MPV 10.8 fL (8.0-11.0); Platelet Count 177 10^3/uL (130-400); RBC 3.85 10^6/uL (3.93-5.22); RDW 13.6 % (11.7-14.6); RDW-SD 46.9 fL; WBC 9.00 10^3/uL (4.4-10.8)
[2025-02-08 14:04] LABS: ALT 19 U/L (14-59); AST 21 U/L (15-37); Albumin 3.9 g/dL (3.4-5.0); Alkaline Phosphatase 69 U/L (46-116); Anion Gap 5.2 mmol/L (3-11); BUN 14 mg/dL (7-18); Bilirubin, Total 0.4 mg/dL (0.2-1.0); CO2 29.8 mmol/L (21.0-32.0); Calcium 8.9 mg/dL (8.5-10.1); Chloride 106 mmol/L (98-107); Estimated GFR 59.49 (mL/min/1.73m2); Glucose 100 mg/dL (74-106); Potassium 4.1 mmol/L (3.5-5.1); Sodium 141 mmol/L (136-145); Total Protein 7.1 g/dL (6.4-8.2)
[2025-02-09 15:34] LABS: Vitamin D 25 Total 37 ng/mL (30-100)
== END 2025-02-08 09:47 | disposition home or self-care (01) ==
PROVIDERS: PCP Nurse Practitioner Family; Visit Provider Student in an Organized Health Care Education/Training Program
DX: E55.9 Vitamin D deficiency, unspecified (principal); I10 Essential (primary) hypertension
CPT/HCPCS: 36415; 80053; 82306; 85025

== ENCOUNTER → 2025-04-07 02:10 | Outpatient (CLI) | payer MEDICARE, SELFPAY ==
--- NOTE | 2025-04-07 | DI.MAMMO_ITS ---
Exam(s) MAMMO SCREENING EXAM: MAMMO SCREENING CLINICAL HISTORY: Z12.31 Screening. TECHNIQUE: Bilateral full field digital CC and MLO mammographic images were obtained with 3D tomosynthesis and utilizing computer aided detection (CAD). COMPARISON: Prior mammograms were reviewed. FINDINGS: No new left breast findings. In the right breast there is a benign-appearing nodular density 8 cm in from the nipple unchanged from prior studies dating back to 2016 and most probably a benign tremor lymph node. There are no new spiculated masses nor new malignant appearing microcalcification groups. There is no significant architectural distortion nor skin thickening-retraction. IMPRESSION: No radiographic evidence of malignancy. BI-RADS Category 1 - Negative Breast Density - Category B - There are scattered areas of fibroglandular density. Breast density Category C or D implies that the patient has dense breast tissue. Dense breast tissue can make it harder to find cancer on a mammogram. Dense breast tissue is also associated with an increased risk of breast cancer. This information about the result of the mammogram report was provided to the patient to raise their awareness. Use this report when you speak with the patient about their risks for breast cancer, which includes their family history. At that time, you may recommend additional screening tests (Ultrasound or MRI) as these tests may add significant information. A negative radiographic report should not delay biopsy if a dominant or clinically suspicious mass is present. Up to ten percent of cancers are not identified on mammography. A negative report may reinforce clinical impression. Adenosis and dense breasts may obscure an underlying neoplasm. False positive reports average 6 to 10%. Patient will receive a letter notifying them of these results.
== END ==
LOC: DI 02:10
PROVIDERS: PCP Nurse Practitioner Family; Visit Provider Student in an Organized Health Care Education/Training Program
DX: Z12.31 Encounter for screening mammogram for malignant neoplasm of breast (principal)
CPT/HCPCS: 77063; 77067